=== PATIENT | female | born 1970 | race Caucasian/White ===

== ENCOUNTER 2023-07-15 08:16 | Outpatient (CLI) | payer BC ==
[2023-07-15] MEDS ORDERED: Iopamidol 370 76% 100 ML VIAL ONE (08:56)
== END 2023-07-15 08:17 | disposition home or self-care (01) ==
LOC: CSHCT 08:16
PROVIDERS: ATTEND Urology
DX: N39.41 Urge incontinence (principal); N20.0 Calculus of kidney; Q63.8 Other specified congenital malformations of kidney
CPT/HCPCS: 74178; Q9967